=== PATIENT | male | born 1935 | race Caucasian/White ===

== ENCOUNTER 2017-09-11 18:15 | Emergency (ER) | payer MEDICARE, BC ==
[2017-09-11 18:38] VITALS: BP 138/65
--- NOTE | 2017-09-11 18:44 | UC ---
Throat Pain/Nasal [place] HPI - HPI Summary HPI Summary: 82 year old male presents with complains of right lower back pain and cough. - History of Current Complaint Chief Complaint: UCRespiratory Stated Complaint: COUGH,SINUS COMPLAINT Time Seen by Provider: 09/11/17 18:40 Hx Obtained From: Patient Onset/Duration: Sudden Onset Severity: Moderate Cough: Nonproductive Associated Signs & Symptoms: Positive: Wheezing, Sinus Discomfort, Nasal Discharge - Allergies/Home Medications Allergies/Adverse Reactions: Allergies Allergy/AdvReac Type Severity Reaction Status Date / Time No Known Allergies Allergy Verified 09/11/17 18:37 PMH/Surg Hx/FS Hx/Imm Hx Previously Healthy: Yes Other History Of: Negative For: Anticoagulant Therapy - Surgical History Surgical History: Yes Surgery Procedure, Year, and Place: Left knee arthroplasty 2010 at [facility]. Bilat Wrists ~2009 with at [facility]. Started Left shoulder arthroscopy for resurfacing today 06/20/[address] Chavez, not done d/t bradycardic event. lower back surgery ~22 yrs ago, [place] in [place] - Family History Known Family History: Positive: None - Social History Alcohol Use: Rare Substance Use Type: None Smoking Status (MU): Never Smoked Tobacco - Immunization History Most Recent Tetanus Shot: " a long time ago" Review of Systems Constitutional: Negative Skin: Rash Eyes: Negative ENT: Sore Throat, Nasal Discharge, Sinus Congestion, Sinus Pain/Tenderness Respiratory: Cough Cardiovascular: Negative Gastrointestinal: Negative Genitourinary: Negative Motor: Negative Neurovascular: Negative Musculoskeletal: Negative Neurological: Negative Psychological: Negative All Other Systems Reviewed And Are Negative: Yes Physical Exam Triage Information Reviewed: Yes Vital Signs: Initial Vital Signs Temp 36.7 C 09/11/17 18:34 Pulse 75 09/11/17 18:34 Resp 18 09/11/17 18:34 BP 138/65 09/11/17 18:34 Pulse Ox 99 09/11/17 18:34 Vital Signs Reviewed: Yes Eye Exam: Normal ENT: Positive: Pharyngeal erythema, Nasal congestion, Nasal drainage, Sinus tenderness Dental Exam: Normal Neck exam: Normal Respiratory: Positive: Wheezing Cardiovascular Exam: Normal Abdominal Exam: Normal Musculoskeletal Exam: Normal Neurological Exam: Normal Psychological Exam: Normal Skin Exam: Normal Throat Pain/Nasal Course/Dx - Differential Dx/Diagnosis Provider Diagnoses: cough. eczema. allergic rhinits Discharge - Discharge Plan Condition: Stable Disposition: HOME Prescriptions: Amoxicillin PO (*) [Amoxicillin 875 MG (*)] 875 mg PO BID #20 tab Guaifenesin-Codeine [Cheratussin AC] 1 teasp PO Q8H PRN #120 ml MDD 15 ml PRN Reason: Cough LoraTADine TAB(NF) [Claritin 10 MG TAB(NF)] 10 mg PO DAILY #30 tab Methocarbamol TAB* [Robaxin 500 MG TAB*] 500 mg PO TID PRN #30 tab PRN Reason: Spasms - Back Patient Education Materials: Sinusitis (ED), Low Back Strain (ED) Referrals: Silva Martinez MD [Primary Care Provider] -
== END 2017-09-11 18:49 | disposition home or self-care (01) ==
LOC: UCCORT 18:15
DX: J30.9 Allergic rhinitis, unspecified (principal); L30.9 Dermatitis, unspecified; M54.5 Low back pain
CPT/HCPCS: 99212; G0463

== ENCOUNTER 2018-12-31 12:42 | Emergency (ER) | payer MEDICARE, BC ==
[2018-12-31 13:23] VITALS: BP 132/55
--- NOTE | 2018-12-31 13:53 | UC ---
Hand/Wrist HPI - HPI Summary HPI Summary: Pt c/o right hadn swelling and pain , s/p falling yesterday after he tripped from standing and hit right hand and left side of head on wooden piece of furniture. Pt denies LOC, [place], nausea or vomiting - History Of Current Complaint Chief Complaint: UCUpperExtremity Stated Complaint: S/P FALL RIGHT HAND INJURY Time Seen by Provider: 12/31/18 13:42 Hx Obtained From: Patient ?: No Onset/Duration: Sudden Onset, Still Present Severity Initially: Moderate Severity Currently: Mild Pain Intensity: 1 Character Of Pain: Stiffness Aggravating Factor(s): Movement, Lifting Alleviating Factor(s): Rest Associated Signs And Symptoms: Positive: Swelling, Bruising Related History: Dominant Hand Right - Risk Factors Compartment Syndrome Risk Factors: Pain - Allergies/Home Medications Allergies/Adverse Reactions: Allergies Allergy/AdvReac Type Severity Reaction Status Date / Time No Known Allergies Allergy Verified 12/31/18 13:17 Home Medications: Home Medications Cholecalciferol TAB* [Vitamin D TAB*] 1,000 unit PO DAILY 12/31/18 [History Confirmed 12/31/18] Pantoprazole TAB * [Protonix TAB*] 40 mg PO DAILY 12/31/18 [History Confirmed ] PMH/Surg Hx/FS Hx/Imm Hx Previously Healthy: Yes Endocrine History: Dyslipidemia GI/ History: Gastroesophageal Reflux Other History Of: Negative For: Anticoagulant Therapy - Surgical History Surgical History: Yes Surgery Procedure, Year, and Place: Left knee arthroplasty 2010 at [facility]. Bilat Wrists ~2009 with at [facility] [place]. Started Left shoulder arthroscopy for resurfacing today 06/20/[address] Chavez, not done d/t bradycardic event. lower back surgery ~22 yrs ago, [place] in [place] - Family History Known Family History: Positive: Cardiac Disease - Social History Occupation: Retired Lives: With Family Alcohol Use: Rare Substance Use Type: None Smoking Status (MU): Never Smoked Tobacco Have You Smoked in the Last Year: No - Immunization History Most Recent Tetanus Shot: " a long time ago" Vaccination Up to Date: No Review of Systems All Other Systems Reviewed And Are Negative: Yes Constitutional: Positive: Negative Skin: Positive: Bruising - right hand, at second distal metacarpal phalangeal joing Eyes: Positive: Negative ENT: Positive: Negative Respiratory: Positive: Negative Cardiovascular: Positive: Negative Gastrointestinal: Positive: Negative Genitourinary: Positive: Negative Motor: Positive: Decreased ROM Neurovascular: Positive: Negative Musculoskeletal: Positive: Arthralgia, Decreased ROM, Edema, Myalgia Neurological: Positive: Negative Psychological: Positive: Negative Is Patient Immunocompromised?: No Physical Exam Triage Information Reviewed: Yes Appearance: Well-Appearing Vital Signs: Initial Vital Signs Temp 97.7 F 12/31/18 13:19 Pulse 58 12/31/18 13:19 Resp 17 12/31/18 13:19 BP 132/55 12/31/18 13:19 Pulse Ox 99 12/31/18 13:19 Vital Signs Reviewed: Yes Eye Exam: Normal ENT Exam: Normal Dental Exam: Normal Neck exam: Normal Respiratory Exam: Normal Cardiovascular Exam: Normal Musculoskeletal: Positive: Strength Limited @, ROM Limited @, Edema @ Neurological Exam: Normal Psychological Exam: Normal Skin Exam: Other - bruising Diagnostics - Radiology No standard instances Radiology Interpretation Completed By: Radiologist - IMPRESSION: 1. OSTEOPENIA. 2. OSTEOARTHRITIS. 3. NO ACUTE OSSEOUS INJURY. THE DEGREE OF OSTEOPENIA MAY MAKE A NONDISPLACED FRACTURE RADIOGRAPHICALLY OCCULT. IF SYMPTOMS PERSIST, RECOMMEND REPEAT IMAGING. Hand/Wrist Course/Dx - Differential Dx/Diagnosis Differential Diagnosis/HQI/PQRI: Contusion, Fracture Provider Diagnosis: Contusion of right hand Discharge - Sign-Out/Discharge Documenting (check all that apply): Patient Departure All imaging exams completed and their final reports reviewed: Yes - Discharge Plan Condition: Stable Disposition: HOME Patient Education Materials: Contusion in Adults (ED), R.I.C.E. Treatment (ED) Referrals: Erwin Eaton MD [Medical Doctor] - If Needed Silva Martinez MD [Primary Care Provider] - If Needed - Billing Disposition and Condition Condition: STABLE Disposition: Home
== END 2018-12-31 14:12 | disposition home or self-care (01) ==
LOC: UCCORT 12:42
DX: S60.221A Contusion of right hand, initial encounter (principal); W01.190A Fall on same level from slipping, tripping and stumbling with subsequent striking against furniture, initial encounter; Y92.9 Unspecified place or not applicable
CPT/HCPCS: 99212; G0463

== ENCOUNTER 2019-12-19 16:31 | Emergency (ER) | payer MEDICARE, BC ==
[2019-12-19 16:40] VITALS: BP 157/73
[2019-12-19] MEDS ORDERED: Aspirin 81 mg CHEW TAB* 81 MG TAB.CHEW PO ONE (16:41)
--- OUTSIDE RECORDS SUMMARY | 2019-12-19 16:54 | XMS REPORT | Continuity of Care Document ---
:1935 External Reference #:[id number] Author Name Shad Jeffery M.D. Address [address], [place] [address] Care Team Providers Name Role Phone Silva Martinez MD - Family Care Team Information Skein Drier [phone] Medicine Problems Active Problems Provider Date Hemifacial spasm Shad Jeffery M.D. Onset: 09/23/2014 Social History Type Date Description Comments Sex Unknown Tobacco Use Start: Unknown Never Smoked Cigarettes Smoking Status Reviewed: 12/17/19 Never Smoked Cigarettes ETOH Use Occasionally consumes alcohol Tobacco Use Start: Unknown Patient has never smoked Recreational Drug Use Denies Drug Use Exercise Type/Frequency Exercises sporadically Allergies, Adverse Reactions, Alerts Description No Known Drug Allergies Medications Active Medications SIG Qnty Indications Ordering Provider Date Pantoprazole Sodium 1 po qd 30tabs Unknown 40mg Tablets Simvastatin 1 po qd 90tabs Unknown 40mg Tablets Aspir-81 1 po qd Unknown 81mg Tablets Multivitamin Adult 1 by mouth Unknown every day Tablets Celecoxib TK 1 C PO bid Unknown 100mg Capsules WF prn Vitamin B12 once daily Unknown 3000mcg Tablets Sub Medications Administered in Office Medication SIG Qnty Indications Ordering Provider Date Injection Onabotulinumtoxin Shad Kamara M.D. 09/10/2019 1 Unit Injection Injection Onabotulinumtoxin Shad Kamara M.D. 05/07/2019 1 Unit Injection Injection Onabotulinumtoxin Shad Kamara M.D. 01/20/2019 1 Unit Injection Injection Onabotulinumtoxin AShad M.D. 10/09/2018 1 Unit Injection Injection Onabotulinumtoxin A, Shad Jeffery M.D. 05/22/2018 1 Unit Injection Injection Onabotulinumtoxin A, Shad Jeffery M.D. 01/13/2018 1 Unit Injection Injection Onabotulinumtoxin A, Shad Jeffery M.D. 09/12/2017 1 Unit Injection Injection Onabotulinumtoxin A, Shad Jeffery M.D. 05/09/2017 1 Unit Injection Injection Onabotulinumtoxin A, Shad Jeffery M.D. 01/03/2017 1 Unit Injection Injection Onabotulinumtoxin A, Shad Jeffery M.D. 08/30/2016 1 Unit Injection Injection Onabotulinumtoxin AShad M.D. 08/30/2016 1 Unit Injection Injection Onabotulinumtoxin A, Shad Jeffery M.D. 05/24/2016 1 Unit Injection Injection Onabotulinumtoxin AShad M.D. 05/24/2016 1 Unit Injection Injection Onabotulinumtoxin A, Shad Jeffery M.D. 02/16/2016 1 Unit Injection Injection Onabotulinumtoxin Asad, Shad Jeffery M.D. 02/16/2016 1 Unit Injection Injection Onabotulinumtoxin A, Shad Jeffery M.D. 11/10/2015 1 Unit Injection Injection Onabotulinumtoxin A, Shad Jeffery M.D. 08/04/2015 1 Unit Injection Injection Onabotulinumtoxin Asad, Shad Jeffery M.D. 03/31/2015 1 Unit Injection Injection Onabotulinumtoxin Asad, Shad Jeffery M.D. 12/23/2014 1 Unit Injection Injection Onabotulinumtoxin A, Shad Jeffery M.D. 09/23/2014 1 Unit Injection Injection Onabotulinumtoxin A, Shad Jeffery M.D. 06/03/2014 1 Unit Injection Injection Onabotulinumtoxin Shad Kamara M.D. 06/03/2014 1 Unit Injection Injection Onabotulinumtoxin Asad, Shad Jeffery M.D. 06/03/2014 1 Unit Injection Injection Onabotulinumciprianoxin Asad, Shad Jeffery M.D. 03/04/2014 1 Unit Injection Injection Onabotulinumtoxin Shad Kamara M.D. 11/26/2013 1 Unit Injection Injection Onabotulinumtoxin Asad, Shad Jeffery M.D. 08/27/2013 1 Unit Injection Injection Onabotulinumtoxin Shad Kamara M.D. 08/27/2013 1 Unit Injection Injection Onabotulinumtoxin Shad Kamara M.D. 04/23/2013 1 Unit Injection Injection Samiabotulinumciprianoxin Shad Kamara M.D. 04/23/2013 1 Unit Injection Injection Onabotulinumtoxin Shad Kamara M.D. 12/18/2012 1 Unit Injection Injection Onabotulinumtoxin Shad Kamara M.D. 12/18/2012 1 Unit Injection Injection Onabotulinumciprianoxin Shad Kamara M.D. 08/14/2012 1 Unit Injection Injection Onabotulinumciprianoxin Shad Kamara M.D. 08/14/2012 1 Unit Injection Depomedrol 80MG Candace Ambriz M.D. 05/29/2012 Injection Injection Onabotulinumtoxin Asad, Shad Jeffery M.D. 05/07/2012 1 Unit Injection Depomedrol 80MG Candace Ambriz M.D. 01/17/2012 Injection Immunizations Description No Information Available Vital Signs Date Vital Result Comment 12/17/2019 1:08pm Height 67 inches 5'7" Weight 204.00 lb Heart Rate 72 /min BP Systolic 118 mmHg BP Diastolic 60 mmHg Respiratory Rate 16 /min Pain Level 0 O2 % BldC Oximetry 98 % BMI (Body Mass Index) 31.9 kg/m2 09/10/2019 11:35am Height 67 inches 5'7" Weight 207.00 lb Heart Rate 70 /min BP Systolic Sitting 126 mmHg BP Diastolic Sitting 78 mmHg Respiratory Rate 12 /min Pain Level 0 O2 % BldC Oximetry 96 % BMI (Body Mass Index) 32.4 kg/m2 Results Description No Information Available Procedures Date Code Description Status 12/17/2019 71971 Destruction W/Neurolytic Agent, Facial Nerve Muscle, Completed Unilateral 09/10/2019 93894 Destruction W/Neurolytic Agent, Facial Nerve Muscle, Completed Unilateral Medical Devices Description No Information Available Encounters Description No Information Available Assessments Date Code Description Provider 12/17/2019 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 Plan of Treatment Future Appointment(s):03/31/2020 1:00 pm - Shad Jeffery M.D. at [place]02/11/2020 8:15 am - Madhuri Blanco MD at [facility] Dermatology AT [facility]/02/2020 - Shad Jeffery M.D.G51.32 Clonic hemifacial spasm, left Functional Status Description No Information Available Mental Status Description No Information Available Referrals Description No Information Available
--- NOTE | 2019-12-19 16:56 | UC ---
Cardiac HPI - HPI Summary HPI Summary: patient to urgent care with son driving. Patient had substernal chest pain while playing pool about 3 pm---the discomfort went away with rest he was noted to be SOB at the time but no nausea or sweating---patient has had two episodes similar in the past that he did not seek care for-patient shows a new LBBB from EKG at [facility] in 2012 - History of Current Complaint Chief Complaint: UCChestPain Stated Complaint: CHEST PAIN Time Seen by Provider: 12/19/19 16:32 Hx Obtained From: Patient Onset/Duration: Sudden Onset, Resolved Initial Severity: Moderate Pain Intensity: 0 Chest Pain Location: Mid Sternal Character: Tightness, Pressure/Squeezing Aggravating Factor(s): Exertion Alleviating Factor(s): Rest Associated Signs & Symptoms: Positive: SOB - Allergy/Home Medications Allergies/Adverse Reactions: Allergies Allergy/AdvReac Type Severity Reaction Status Date / Time No Known Allergies Allergy Verified 12/19/19 16:34 Home Medications: Home Medications Aspirin 81 mg PO QPM 06/19/12 [History Confirmed 12/19/19] Multivitamins 1 tab PO QPM 06/19/12 [History Confirmed 12/19/19] Zocor 20 mg PO QPM 06/19/12 [History Confirmed 12/19/19] Cholecalciferol TAB* [Vitamin D TAB*] 1,000 unit PO DAILY 12/31/18 [History Confirmed 12/19/19] Pantoprazole TAB * [Protonix TAB*] 40 mg PO DAILY 12/31/18 [History Confirmed ] PMH/Surg Hx/FS Hx/Imm Hx Previously Healthy: No Endocrine History: Dyslipidemia GI/ History: Gastroesophageal Reflux Other History Of: Negative For: Anticoagulant Therapy - Surgical History Surgical History: Yes Surgery Procedure, Year, and Place: Left knee arthroplasty 2010 at [facility]. Bilat Wrists [facility]. Started Left shoulder arthroscopy for resurfacing today 06/20/[address] Chavez, not done d/t bradycardic event. lower back surgery ~22 yrs ago, [place] in [place] - Family History Known Family History: Positive: None, Cardiac Disease - Social History Occupation: Retired Lives: With Family Alcohol Use: Weekly Substance Use Type: None Smoking Status (MU): Never Smoked Tobacco Have You Smoked in the Last Year: No - Immunization History Most Recent Tetanus Shot: " a long time ago" Vaccination Up to Date: No Review of Systems All Other Systems Reviewed And Are Negative: Yes Constitutional: Positive: Negative Skin: Positive: Negative Eyes: Positive: Negative ENT: Positive: Negative Respiratory: Positive: Shortness Of Breath Cardiovascular: Positive: Chest Pain Gastrointestinal: Positive: Negative Genitourinary: Positive: Negative Motor: Positive: Negative Neurovascular: Positive: Negative Musculoskeletal: Positive: Negative Neurological/Mental Status: Positive: Negative Psychological: Positive: Negative Is Patient Immunocompromised?: No Physical Exam Triage Information Reviewed: Yes Appearance: No Pain Distress, Well-Nourished, Ill-Appearing - mild Vital Signs: Initial Vital Signs Temp 97.2 F 12/19/19 16:35 Pulse 82 12/19/19 16:35 Resp 17 12/19/19 16:35 BP 157/73 12/19/19 16:35 Pulse Ox 95 12/19/19 16:35 Vital Signs Reviewed: Yes Eye Exam: Normal Eyes: Positive: Conjunctiva Clear ENT Exam: Normal ENT: Positive: Normal ENT inspection, Hearing grossly normal. Negative: Trismus , Muffled voice, Hoarse voice Neck exam: Normal Neck: Positive: Supple, Nontender, No Lymphadenopathy Respiratory Exam: Normal Respiratory: Positive: Chest non-tender, No respiratory distress, No accessory muscle use Cardiovascular Exam: Normal Cardiovascular: Positive: RRR, Pulses Normal, Brisk Capillary Refill Musculoskeletal Exam: Normal Musculoskeletal: Positive: Strength Intact, ROM Intact, No Edema Neurological Exam: Normal Neurological: Positive: Alert, Muscle Tone Normal Psychological Exam: Normal Skin Exam: Normal Diagnostics - EKG Cardiac Rate: NL Cardiac Rhythm: Sinus: Normal, LBBB: New Ectopy: None ST Segment: Normal EKG Comparison: Other - new LBBB from 2012 Summary of EKG Findings: sinus rhythm with LBBB - Assessment/Plan Course Of Treatment: 324 mg of aspirin to chew, saline lock to [facility] by EMS, - Clinical Impression Provider Diagnosis: Chest pain - Physician Notifications Discussed Patient Care With: Clark Anguiano Time Discussed With Above Provider: 16:55 Discharge ED - Sign-Out/Discharge Documenting (check all that apply): Patient Departure All imaging exams completed and their final reports reviewed: No Studies - Discharge Plan Condition: Fair Disposition: [facility] FAC Referrals: Silva Martinez MD [Primary Care Provider] - - Billing Disposition and Condition Condition: FAIR Disposition: Trans Higher Lvl of Care Fac
== END 2019-12-19 16:58 | disposition short-term general hospital (02) ==
LOC: UCCORT 16:31
DX: R07.89 Other chest pain (principal); R06.02 Shortness of breath; I44.7 Left bundle-branch block, unspecified; E78.5 Hyperlipidemia, unspecified; K21.9 Gastro-esophageal reflux disease without esophagitis; Z79.82 Long term (current) use of aspirin; Z79.899 Other long term (current) drug therapy
CPT/HCPCS: 99213; A9270-GY; G0463

== ENCOUNTER 2019-12-19 17:46 | Observation (INO) | payer MEDICARE, BC ==
--- NOTE | 2019-12-19 17:58 | ED ---
HPI Chest Pain - HPI Summary HPI Summary: 84 y/o male presented to [facility] complaining of CP characterized as tightness that resolved after 15-20 minutes. Pt endorses nausea and dyspnea, but denies diaphoresis, SOB, fever, cough, and abd pain. Pt states the pain does not radiate and that he has experienced TRENT recently. He notes 2 prior episodes with similar sx. Pt denies hx of cardiac problems, asthma, COPD, stent, or blood clots. He denies fhx of HTN and DM. - History of Current Complaint Hx Obtained From: Patient Onset/Duration: Resolved Timing: Lasting Minutes Current Severity: None Pain Intensity: 0 Pain Scale Used: 0-10 Numeric Chest Pain Radiates: No Character: Tightness Aggravating Factor(s): Nothing Alleviating Factor(s): Nothing Associated Signs and Symptoms: Positive: Chest Pain, Other: - positive - dyspnea. Negative: Shortness of Breath, Fever, Diaphoresis, Cough, Abdominal Pain - Allergy/Home Medications Allergies/Adverse Reactions: Allergies Allergy/AdvReac Type Severity Reaction Status Date / Time No Known Allergies Allergy Verified 12/19/19 20:43 Home Medications: Home Medications Cholecalciferol TAB* [Vitamin D TAB*] 1,000 unit PO DAILY 12/31/18 [History Confirmed 12/19/19] Aspirin 81 mg CHEW TAB* 81 mg PO DAILY 12/19/19 [History Confirmed 12/19/19] Atorvastatin* [Lipitor*] 40 mg PO DAILY 12/19/19 [History Confirmed 12/19/19] Glucos Sul 2Kcl/MSM/Chond/C/Mn [Glucosamine Chondroitin Cap] 1 cap PO DAILY 01/03 [History Confirmed 12/19/19] Pantoprazole TAB * [Protonix TAB*] 20 mg PO EVERY OTHER DAY 12/19/19 [History Confirmed 12/19/19] Vitamin B12 TAB* 500 mg PO DAILY 12/19/19 [History Confirmed 12/19/19] celeCOXIB CAP* [CeleBREX CAP*] 100 mg PO BID 12/19/19 [History Confirmed ] PMH/Surg Hx/FS Hx/Imm Hx Endocrine/Hematology History: Denies: Hx Anticoagulant Therapy, Hx Blood Disorders, Hx Blood Transfusions, Hx Bone Marrow Disease, Hx Diabetes, Hx Systemic Lupus Erythematosus, Hx Sickle Cell Disease, Hx Thyroid Disease, Hx Anemia, Hx Unexplained Bleeding Cardiovascular History: Reports: Hx Hypercholesterolemia, Other Cardiovascular Problems/Disorders - EPISODE OF BRADYCARDIA, 06/20/[address] GODOY Denies: Hx Angina, Hx Coronary Artery Disease, Hx Hypertension, Hx Myocardial Infarction, Hx Valvular Heart Disease Respiratory History: Denies: Hx Asthma, Hx Chronic Obstructive Pulmonary Disease (COPD) GI History: Reports: Hx Jaundice - see above, Hx Ulcer - stomach ulcers years ago,,takes protonix at home Denies: Hx Cirrhosis, Hx Crohn's Disease, Hx Diverticulosis, Hx Gall Bladder Disease, Hx Gastroesophageal Reflux Disease, Hx Gastrointestinal Bleed, Hx Hiatal Hernia, Hx Irritable Bowel, Hx Obstructive Bowel, Hx Ileostomy, Hx Pyloric Stenosis, Other GI Disorders History: Reports: Other Problems/Disorders - Prostate Ca, had radiation states no difference in voiding Denies: Hx Acute Renal Failure, Hx Benign Prostatic Hyperplasia, Hx Chronic Renal Failure, Hx Dialysis, Hx Kidney Infection, Hx Kidney Stones Musculoskeletal History: Reports: Hx Arthritis - left shoulder and "all over", Hx Back Problems, Hx Tendonitis - Carpal tunnel sydrome, has had surgical intervention on bilat wrists, Other Musculoskeletal History - left knee repair Denies: Hx Bursitis, Hx Congenital Bone Abnormalities, Hx Fibromyalgia, Hx Gout, Hx Orthopedic Injury, Hx Osteoporosis, Hx Scoliosis Sensory History: Reports: Hx Contacts or Glasses Denies: Hx Cataracts, Hx Eye Injury, Hx Eye Prosthesis, Hx Glaucoma, Hx Macular Degeneration, Hx Vision Problem, Hx Deafness, Hx Hearing Aid, Hx Hearing Problem, Other Sensory Impairments Opthamlomology History: Reports: Hx Contacts or Glasses Denies: Hx Cataracts, Hx Eye Injury, Hx Eye Prosthesis, Hx Glaucoma, Hx Macular Degeneration, Hx Vision Problem, Other Sensory Impairments Neurological History: Reports: Other Neuro Impairments/Disorders - Left eye twitches, receives botox injections for that, otherwise no hx Denies: Hx Dementia, Hx Seizures - Cancer History Cancer Type, Location and Year: Prostate Ca- 2011 Hx Chemotherapy: No Hx Radiation Therapy: Yes - Surgical History Surgery Procedure, Year, and Place: Left knee arthroplasty 2010 at [facility]. Bilat Wrists ~2009 with at [facility]. Started Left shoulder arthroscopy for resurfacing today 06/20/[address] Chavez, not done d/t bradycardic event. lower back surgery ~22 yrs ago, [facility] in [place] Hx Anesthesia Reactions: No Infectious Disease History: Reports: Hx Hepatitis - ~1953 had "yellow jaundice" unknown which type Denies: Hx Human Immunodeficiency Virus (HIV), Hx Shingles, Hx Tuberculosis - Family History Known Family History: Positive: Cardiac Disease - Social History Alcohol Use: Weekly Substance Use Type: Reports: None Smoking Status (MU): Never Smoked Tobacco Have You Smoked in the Last Year: No Review of Systems Negative: Fever, Skin Diaphoresis Positive: Chest Pain Positive: Other - dyspnea. Negative: Shortness Of Breath, Cough Negative: Abdominal Pain All Other Systems Reviewed And Are Negative: Yes Physical Exam - Summary Physical Exam Summary: Constitutional: Well-developed, Well-nourished, Alert. (-) Distressed Skin: Warm, Dry HENT: Normocephalic; Atraumatic Eyes: Conjunctiva normal Neck: Musculoskeletal ROM normal neck. (-) JVD, (-) Stridor, (-) Tracheal deviation Cardio: Rhythm regular, rate normal, Heart sounds normal; Intact distal pulses; The pedal pulses are 2+ and symmetric. Radial pulses are 2+ and symmetric. (-) Murmur Pulmonary/Chest wall: Effort normal. (-) Respiratory distress, (-) Wheezes, (-) Rales Abd: Soft, (-) tenderness, (-) Distension, (-) Guarding, (-) Rebound Musculoskeletal: (-) Edema Lymph: (-) Cervical adenopathy Neuro: Alert, Oriented x3 Psych: Mood and affect Normal Triage Information Reviewed: Yes Vital Signs Reviewed: Yes Procedures - Sedation Patient Received Moderate/Deep Sedation with Procedure: No Diagnostics - Laboratory Result Diagrams: 12/20/19 05:28 12/20/19 05:28 Lab Statement: Any lab studies that have been ordered have been reviewed, and results considered in the medical decision making process. - Radiology cxr Radiology Interpretation Completed By: Radiologist Summary of Radiographic Findings: IMPRESSION: No radiographic evidence for acute cardiopulmonary abnormality on this. portable chest x-ray. This report was reviewed by the Dr. Galicia. - EKG 1802 Cardiac Rate: NL EKG Rhythm: Sinus Rhythm Summary of EKG Findings: EKG at 1802 shows NSR at 62bpm. T wave inversions in III and avF. This EKG was reviewed and interpreted by Dr. Galicia. Chest Pain Course/Dx - Course Course Of Treatment: 84 y/o male presented to [facility] complaining of CP characterized as tightness that resolved after 15-20 minutes. Pt endorses nausea and dyspnea, but denies diaphoresis, SOB, fever, cough, and abd pain. Pt states the pain does not radiate and that he has experienced TRENT recently. He notes 2 prior episodes with similar sx. Pt denies hx of cardiac problems, asthma , COPD, stent, or blood clots. He denies fhx of HTN and DM. Exam was normal. Labs showed Hgb 13.8, Hct 39, BUN 33, BUN/creatinine ratio 40.2, Glc 134, and total protein 6.1. EKG at 1802 shows NSR at 62bpm. T wave inversions in III and avF. X-ray chest showed no radiographic evidence for acute cardiopulmonary abnormality on this. At 1913 pt case was discussed with Dr. Feliciano, who will admit the pt. Pt was diagnosed with chest pain; and admitted to [facility] - Diagnoses Provider Diagnoses: Chest pain - Provider Notifications Discussed Care Of Patient With: Ashely Feliciano Time Discussed With Above Provider: 19:13 Instructed by Provider To: Other - Pt case was discussed with Dr. Feliciano, who will admit the pt. Discharge ED - Sign-Out/Discharge Documenting (check all that apply): Patient Departure - admit - Discharge Plan Condition: Stable Disposition: ADMITTED TO [facility] - Billing Disposition and Condition Condition: STABLE Disposition: Admitted to [facility] - Attestation Statements Document Initiated by Emmettibe: Yes Documenting Scribe: Bhupinder Peña Provider For Whom Pietro is Documenting (Include Credential): Lopez Galicia DO Scribe Attestation: Bhupinder Blanchard scribed for Lopez Galicia DO on 12/20/19 at 1225. Scribe Documentation Reviewed: Yes Provider Attestation: The documentation as recorded by the Bhupinder hardwick accurately reflects the service I personally performed and the decisions made by me, Lopez Galicia DO Status of Scribe Document: Viewed
[2019-12-19 18:11] LABS: ABS Eosinophils 0.1 10^3/ul (0-0.6); ABS Lymphocytes 1.5 10^3/ul (1.0-4.8); ABS Monocytes 0.5 10^3/ul (0-0.8); ABS Neutrophils 5.3 10^3/ul (1.5-7.7); Eosinophil % 0.8 %; Hematocrit 39 % (42-52); Hemoglobin 13.8 g/dL (14.0-18.0); Lymphocyte % 19.9 %; Mean Corpuscular HGB Conc 35 g/dL (31-36); Mean Corpuscular Hemoglobin 31 pg (27-31); Mean Corpuscular Volume 89 fL (80-94); Mean Platelet Volume 7.8 fL (7.4-10.4); Platelet Count 176 10^3/uL (150-450); Red Blood Count 4.42 10^6 /uL (4.18-5.48); Red Cell Distribution Width 14 % (10-15); White Blood Count 7.3 10^3/uL (3.5-10.8)
[2019-12-19 18:19] LABS: Activated Partial Thrombo Time 31.2 seconds (26.0-38.0); INR 1.09 (0.82-1.09)
[2019-12-19 18:27] LABS: Albumin 3.9 g/dL (3.2-5.2); Albumin/Globulin Ratio 1.8 (1-3); BUN/Creatinine Ratio 40.2 (8-20); Calcium 9.4 mg/dL (8.6-10.3); EGFR African American 108.8 (>60); EGFR Non-African American 89.9 (>60); Globulin 2.2 g/dL (2-4); Potassium 3.7 mmol/L (3.5-5.0); Total Bilirubin 0.4 mg/dL (0.2-1.0); Total Protein 6.1 g/dL (6.4-8.9)
[2019-12-19 18:28] LABS: Troponin I 0.01 ng/mL (<0.03)
--- NOTE | 2019-12-19 22:39 | HP ---
AMENDED REPORT NOW INCLUDES DESIGNATED COSIGNER HISTORY AND PHYSICAL: DATE OF ADMISSION: 12/19/19 PROVIDER: Lora Velasquez NP ATTENDING PHYSICIAN: Dr. Ashely Feliciano * (report dictated by Lora Velasquez NP). PRIMARY CARE PROVIDER: Dr. Silva Martinez. CHIEF COMPLAINT: Chest pain and shortness of breath. HISTORY OF PRESENT ILLNESS: Mr. Titus is an 84-year-old male with a past medical history of obesity, GERD, low back pain, peptic ulcer disease, osteoarthritis, hyperlipidemia, 2012 intraoperative asystole who presented to the emergency department today sent from urgent care with complaint of chest pain and shortness of breath. The patient reports he had an episode of chest pain around 2 p.m. today in which he described he had been active most of the day, had just come back from riding his motorcycle, and developed acute onset of midsternal chest pain, reporting it felt like somebody was sitting on his chest, this was accompanied with shortness of breath. He denies radiation. He reports this lasted for approximately 15 minutes, then resolved. He reports he still did not quite feel well a couple of hours after this happened, so he came to the emergency room for further evaluation. In the previous 6 months, he reports he has intermittently woken up in the night with similar chest discomfort reporting it is accompanied with diffuse sweating and states this has happened approximately 10 times. He reports that it resolves within 10 minutes and he is able to fall back asleep. He denies any history of cardiac disease in the past. His father did have heart disease with hx of [place]. He reports he has had "several" cardiac stress tests in the past, which have been negative, but states that these were greater than 5 years ago. He denies any recent cough, upper respiratory illness, fever, or chills. He reports otherwise he feels in his normal state of health. He does report he has a history of reflux which is controlled by Zantac. He does report that last week he ate a slice of pizza and experienced reflux afterwards, and then today, he reports he ate oatmeal and a doughnut, but does not correlate the symptoms he experienced today with the symptoms of what he normally feels as reflux. The patient has not had any further chest pain or shortness of breath since arrival to the emergency department. PAST MEDICAL HISTORY: Obesity, hyperlipidemia, osteoarthritis, infectious hepatitis in high school, peptic ulcer disease, BPH, GERD, chronic low back pain , hx of asytsole in the setting of hypotention inoperative in 2012 had a cardiology work up at that time with nuclear med stress test showing small area of attenuation or possible small area of ischemia PAST SURGICAL HISTORY: Shoulder surgery, knee arthroscopy, tonsillectomy, back surgery, carpal tunnel release. HOME MEDICATIONS: 1. Vitamin D 1000 units p.o. daily. 2. Aspirin 81 mg p.o. daily. 3. Zocor 20 mg p.o. daily. 4. Multivitamin p.o. daily. ALLERGIES: No known drug allergies. FAMILY HISTORY: His mother lived to the age of 102. His father had history of cardiac disease and congestive heart failure. He reports his brother had throat cancer. SOCIAL HISTORY: The patient denies a history of smoking. He reports he drinks alcohol couple times a week, not excessively. He currently lives at home with his who is his healthcare proxy. He has 2 grown children who live in [place] that he is close to. He lists his as his healthcare proxy. He is a full code. REVIEW OF SYSTEMS: A 14-point review of systems was performed. All the pertinent positives and negatives are mentioned in the history of present illness, otherwise are negative. PHYSICAL EXAMINATION GENERAL: A well-developed 84-year-old male, sitting up in emergency department stretcher, alert and oriented x3, in no acute distress, fairly good historian, appropriate. VITAL SIGNS: Temperature 97.3, heart rate 64, respirations 13, O2 sat 97% on room air, blood pressure 145/75. HEENT: Head is normocephalic and atraumatic. Pupils equal and reactive to light. Oropharynx is clear. Moist mucous membranes. NECK: Supple. No JVD. LUNGS: Clear to auscultation bilaterally. Good aeration throughout. CARDIAC: S1 and S2. Regular rate and rhythm. No murmur noted. ABDOMEN: Obese, round abdomen. Soft, nontender, nondistended. No masses noted. EXTREMITIES: Moves all extremities. Strength is 5/5 throughout. No lower extremity edema noted. NEURO: Alert and oriented x3. Cranial nerves II through XII are intact. Strength is equal throughout. SKIN: Warm, dry, pink. DIAGNOSTIC STUDIES/LAB DATA: Labs: WBC 7.3, RBC 4.42, HGB 13.8, HCT 39, MCV 89, MCH 31, MCHC 35, RDW 14, platelet count 176. INR 1.09, aPTT 31.2. Sodium 139, potassium 3.7, chloride 104, carbon dioxide 28, anion gap 7, BUN 33, creatinine 0.82, glucose 134, calcium 9.4. Total bilirubin 0.40, AST 18, ALT 18 , alkaline phosphatase 98. Troponin 0.01. Total protein 6.1, albumin 3.9. EKG: Normal sinus rhythm with a rate of 62, noted T-wave inversions in lead III and aVF. Chest x-ray: No radiographic evidence of acute cardiopulmonary abnormality. IMPRESSION AND PLAN: Mr. Titus is an 84-year-old male with a past medical history of obesity, hyperlipidemia, gastroesophageal reflux disease, peptic ulcer disease, osteoarthritis, low back pain, who presents today with complaint of chest pain. 1. Chest pain. The patient's HEART score is 5 placing him at moderate risk. He will be admitted on observation to telemetry with q.4 hours vital signs. Initial troponin is 0.01, trend it q.3 hours. Repeat EKG. Plan for transthoracic echocardiogram tomorrow. Cardiac nuclear stress test on Saturday. Continue aspirin 81 mg. Continue statin. Check fasting lipid profile in the morning. if the patient develops further chest pain or abnormal stress test he should have a truck bench mechanic consult 2. Gastroesophageal reflux disease. Continue PPI. 3. Hyperlipidemia. Continue statin. Fasting lipid profile in the morning. 4. DVT prophylaxis. Heparin subcu q.8. 5. Diet: Heart healthy, no caffeine. 6. Activity: Up with assistance 7. Code status: Full code. The patient's healthcare proxy is his , Mikala Titus, number [phone]. 8. Hospital status. Observation. TIME SPENT: Approximately 60 minutes was spent on this admission. This patient was discussed with attending physician, Dr. Feliciano, who agrees the plan of care. LORA VELASQUEZ, LICENSED MARINE ENGINEER [id number]/[facility] #: [id number] SMALLPOX HOSPITALEmilee
[2019-12-19] MEDS: Heparin VIAL(*) 5000 UNITS/ML VIAL (FIVE THOUSAND) SUBCUT SCH (22:58)
[2019-12-19] MEDS: Atorvastatin* 40 MG TAB PO SCH (23:22)
[2019-12-20] MEDS: Heparin VIAL(*) 5000 UNITS/ML VIAL (FIVE THOUSAND) SUBCUT SCH ×3 (05:16→20:34)
[2019-12-20 06:03] LABS: ABS Eosinophils 0.1 10^3/ul (0-0.6); ABS Lymphocytes 1.5 10^3/ul (1.0-4.8); ABS Monocytes 0.5 10^3/ul (0-0.8); ABS Neutrophils 3.7 10^3/ul (1.5-7.7); Eosinophil % 1.5 %; Hematocrit 38 % (42-52); Hemoglobin 13.1 g/dL (14.0-18.0); Lymphocyte % 25.8 %; Mean Corpuscular HGB Conc 34 g/dL (31-36); Mean Corpuscular Hemoglobin 31 pg (27-31); Mean Corpuscular Volume 89 fL (80-94); Nucleated Red Blood Cells % 0.1; Platelet Count 181 10^3/uL (150-450); Red Blood Count 4.28 10^6 /uL (4.18-5.48); Red Cell Distribution Width 14 % (10-15); White Blood Count 5.8 10^3/uL (3.5-10.8)
[2019-12-20 06:17] LABS: BUN/Creatinine Ratio 31.5 (8-20); Calcium 8.8 mg/dL (8.6-10.3); EGFR African American 95.3 (>60); EGFR Non-African American 78.8 (>60); HDL Cholesterol 37.1 mg/dL; Potassium 3.5 mmol/L (3.5-5.0)
[2019-12-20] MEDS: Aspirin 81 mg CHEW TAB* 81 MG TAB.CHEW PO SCH (07:59)
[2019-12-20] MEDS: Cholecalciferol TAB* 1000 UNITS PO SCH (07:59)
--- NOTE | 2019-12-20 09:22 | PN ---
Subjective Date of Service: 12/20/19 Interval History: Patient reports no further CP since prior to admission. He slept well. No complaints at this time. Objective Active Medications: Aspirin (Aspirin 81 Mg Chew Tab*) 81 mg PO DAILY [facility] Last Admin: 12/20/19 07:59 Dose: 81 mg Atorvastatin Calcium (Lipitor*) 40 mg PO BEDTIME [facility] Last Admin: 12/19/19 23:22 Dose: 40 mg Cholecalciferol (Vitamin D Tab*) 1,000 units PO DAILY [facility] Last Admin: 12/20/19 07:59 Dose: 1,000 units Heparin Sodium (Porcine) (Heparin Vial(*)) 5,000 units SUBCUT Q8HR [facility] Last Admin: 12/20/19 05:16 Dose: 5,000 units Vital Signs - 8 hr 12/20/19 08:00 Temperature 98.0 F Pulse Rate 64 Respiratory 20 Rate Blood Pressure 150/63 (mmHg) O2 Sat by Pulse 97 Oximetry Oxygen Devices in Use Now: None Appearance: A+Ox3 in NAD Eyes: PERRLA Ears/Nose/Mouth/Throat: Mucous Membranes Moist Neck: NL Appearance and Movements; NL JVP Respiratory: Symmetrical Chest Expansion and Respiratory Effort, Clear to Auscultation Cardiovascular: NL Sounds; No Murmurs; No JVD, RRR, No Edema Abdominal: NL Sounds; No Tenderness; No Distention, - - obese Extremities: No Edema, No Clubbing, Cyanosis Skin: - - warm, dry, pink Neurological: Alert and Oriented x 3 Lines/Tubes/Other Access: Clean, Dry and Intact Peripheral IV Nutrition: Taking PO's Result Diagrams: 12/20/19 05:28 12/20/19 05:28 Assess/Plan/Problems-Billing Assessment: Mr. Titus is an 84-year-old male with a past medical history of obesity, GERD, low back pain, peptic ulcer disease, osteoarthritis, hyperlipidemia, 2012 intraoperative asystole who presented to the emergency department today with complaint of chest pain and shortness of breath. - Patient Problems (1) Chest pain Current Visit: Yes Comment: - Troponins flat - EKG on admission inverted Twaves in lead III and avf of unknown age determinate - no changes in EKG since admission - plan for TTE today - Cardiac Stress Test tomorrow; NPO after midnight - Continue statin, ASA (2) GERD (gastroesophageal reflux disease) Comment: - continue PPI (3) Hyperlipidemia Current Visit: Yes Comment: - lipid profile - well controlled - triglycerides a little high - patient was instructed this is most likely secondary to diet and reducing sugar/processed carbohydrates replacing with healthy whole foods could help lower this. - Continue statin (4) Obesity (BMI 30.0-34.9) Current Visit: Yes Comment: - add on HgA1C (5) DVT prophylaxis Current Visit: Yes Comment: Heparin SQ Q8 hour (6) Full code status Current Visit: Yes Status and Disposition: OBV -Waiting for stress test Saturday
[2019-12-20] MEDS ORDERED: Perflutren Lipid Microsphere* 3 ML VIAL ONE (10:44)
--- NOTE | 2019-12-20 11:32 | ECHO ---
*[facility]* [place] [address] Fax #: [phone] Transthoracic Echocardiogram Patient: Thony Titus : 1935 Study Date: 12/20/2019 Age: 84 Gender: M HR: 70 bpm Height: 66 in /167.6 cm BSA: 2.02 m^2 Weight: 204.6 lb /93 kg BMI: 33.1 kg/m^2 *Supervisor [place] [employer]: Noreen Silva [facility] *Referring Physician: * Alisha Horne *Reading Physician: Real Dunham MD Indications: Chest Pain, unspecified. History: Risk factors: Obese. Dyslipidemia. Conclusions Summary: - Left ventricle: There is focal basal hypertrophy. Systolic function is normal. The estimated ejection fraction is 60-65%. Doppler parameters are consistent with abnormal left ventricular relaxation (grade 1 diastolic dysfunction). - Aortic valve: The findings are consistent with mild stenosis. The valve area by the velocity-time integral method is 1.44 cm^2. The aortic stenosis seems mild by suboptimal 2d and peak gradient. The seems mild to moderate by continuity which may overestimate the degree of stenosis. The valve area by the peak velocity method is 1.40 cm^2. Study data: Transthoracic echocardiogram. Procedure: Transthoracic echocardiography was performed. Image quality was adequate. Intravenous Definity , 2 mlswas administered. Image enhancement administered by AIMEE Ca 4S. Complete 2D, spectral Doppler, and color flow Doppler. Location: Bedside. Patient status: Inpatient. Patient room number: 444. No prior study is available for comparison. Rhythm: Normal sinus rhythm. Findings Left ventricle: The cavity size is normal. There is focal basal hypertrophy. Systolic function is normal. The estimated ejection fraction is 60-65%. Wall motion is normal; there are no regional wall motion abnormalities. Doppler parameters are consistent with abnormal left ventricular relaxation (grade 1 diastolic dysfunction). Right ventricle: The cavity size is normal. Systolic function is normal. Ventricular septum: The outflow septum has a sigmoid appearance. Left atrium: The atrium is normal in size. Right atrium: The atrium is normal in size. Mitral valve: The leaflets are normal thickness. There is no evidence of stenosis. There is no significant regurgitation. Aortic valve: The valve is probably trileaflet. The leaflets are mildly thickened. The findings are consistent with mild stenosis. There is no significant regurgitation. Tricuspid valve: The leaflets are normal thickness. There is no evidence of stenosis. There is no significant regurgitation. Pulmonic valve: Not well visualized. There is no significant regurgitation. Aorta: The aortic root appears normal. The aortic arch appears normal. Pericardium: There is no significant pericardial effusion. Pulmonary arteries: Systolic pressure can not be accurately estimated. Systemic veins: Inferior vena cava: The vessel is normal in size. There is (>= 50%) respiratory change in the IVC dimension. Measurements Left ventricle Value Ref Aortic valve Value Ref MARIA ELENA, LAX 4.5 cm 4.2 - 5.8 Carol diam, ED 2.0 cm -------- ESD, LAX 3.0 cm 2.5 - 4.0 Carol diam/bsa, ED 1.0 cm/m^2 -------- FS, LAX 34 % 25 - 43 Peak v, S 2.2 m/sec -------- PW, ED, LAX 0.9 cm 0.6 - 1.0 VTI, S 48.0 cm -------- E', lat carol, TDI (L) 6.0 cm/sec >=10.0 Mean grad, S 9.0 mm Hg -------- E/e', lat carol, 12 Peak grad, S 19.0 mm Hg --- ----- TDI LVOT/AV, VTI ratio 0.46 -------- E', med carol, TDI 8.0 cm/sec >=7.0 ABDIRAHMAN, VTI 1.44 cm^2 -------- E/e', med carol, 9 ABDIRAHMAN, Vmax 1.40 cm^2 --- ----- TDI E', avg, TDI 7.0 cm/sec Mitral valve Value Ref E/e', avg, TDI 10 <=14 Peak E 0.72 m/sec -------- Peak A 0.82 m/sec -------- LVOT Value Ref Decel time 166 ms -------- Diam, S 2.00 cm Peak grad, D 2.0 mm Hg -------- Area 3.1 cm^2 Peak E/A ratio 0.9 -------- Peak wayne, S 0.99 m/sec VTI, S 22.0 cm Pulmonic valve Value Ref Mean grad, S 2 mm Hg Peak v, S 0.97 m/sec -------- SV 69 ml Peak grad, S 4.0 mm Hg -------- Ventricular septum Value Ref Aortic root Value Ref IVS, ED (H) 1.2 cm 0.6 - 1.0 Root diam 2.8 cm <4.2 Root max diam/bsa, 1.4 cm/m^2 1.3 - Right ventricle Value Ref ED 2.1 MARIA ELENA, LAX 2.7 cm MARIA ELENA minor ax, A4C 3.0 cm 1.9 - 3.5 Ascending aorta Value Ref mid AAo AP diam, S 2.9 cm -------- AAo AP diam/bsa, S 1.4 cm/m^2 -------- Left atrium Value Ref AP dim, ES 3.70 cm 3.00 - Aortic arch Value Ref 4.00 Arch diam 2.7 cm -------- ML dim, A4C 3.9 cm SI dim, A4C 4.9 cm Decending aorta Value Ref Vol/bsa, ES, A/L 19 ml/m^2 16 - 34 Shy peak wayne 0.65 m/sec -------- Right atrium Value Ref Inferior vena cava Value Ref SI dim, ES 4.1 cm 3.4 - 5.3 Diam 1.7 cm -------- ML dim, ES, A4C 3.7 cm 2.6 - 4.4 Estimated RAP 8 mm Hg Legend: (L) and (H) anastacia values outside specified reference range. Prepared and electronically signed by Real Jenkins MD 12/20/2019 11:32
[2019-12-20] MEDS: Atorvastatin* 40 MG TAB PO SCH (20:34)
[2019-12-21] MEDS: Heparin VIAL(*) 5000 UNITS/ML VIAL (FIVE THOUSAND) SUBCUT SCH (05:58)
[2019-12-21] MEDS: Aspirin 81 mg CHEW TAB* 81 MG TAB.CHEW PO SCH (08:28)
[2019-12-21] MEDS: Cholecalciferol TAB* 1000 UNITS PO SCH (08:28)
[2019-12-21] MEDS ORDERED: Aminophylline IV* 25 MG/ML 10 ML VIAL ONE (10:18)
[2019-12-21] MEDS ORDERED: Regadenoson* 0.4 MG/5 ML SYRINGE ONE (10:18)
[2019-12-21 12:36] VITALS: BP 146/58
--- NOTE | 2019-12-21 17:06 | DS ---
CC: Dr. Silva Martinez* DISCHARGE SUMMARY: DATE OF ADMISSION: 12/19/19 DATE OF DISCHARGE: 12/21/19 PRIMARY CARE PHYSICIAN: Dr. Silva Martinez. PRINCIPAL DISCHARGE DIAGNOSIS: Chest pain. SECONDARY DISCHARGE DIAGNOSES: 1. Obesity. 2. Hyperlipidemia. 3. Osteoarthritis. 4. Peptic ulcer disease. 5. Benign prostatic hypertrophy. 6. Gastroesophageal reflux disease. 7. Low back pain. 8. History of asystole in the setting of hypotension intraoperatively in 2011. MEDICATIONS FOR DISCHARGE: 1. Cholecalciferol 1000 units daily. 2. Celebrex 100 mg b.i.d. 3. Atorvastatin 40 mg daily. 4. Vitamin B12 500 mcg daily. 5. Pantoprazole 20 mg every other day. 6. Glucosamine 1 cap daily. 7. Aspirin 81 mg daily. PHYSICAL EXAMINATION: At the time of discharge, temperature 98 degrees, heart rate 56, respiratory rate 20, pulse ox 99% on room air, blood pressure 146/58. General: Alert, well-appearing man who appears younger than stated age. HEENT: Pupils are equal, round, and reactive to light. Oral mucosa is moist. Neck: No JVP. No adenopathy. Chest: He is in a regular rate and rhythm with no murmurs. His lungs are clear bilaterally. Abdomen: Soft, nontender, nondistended. No guarding or rebound. No CVA tenderness. Extremities: No edema, rashes, or ulcers. Neurologic: Oriented x3. Strength 5/5 in all extremities and gait is normal. PERTINENT STUDIES ON THIS EXAM: A transthoracic echocardiogram on 12/19/19 showed LV, there is focal basal hypertrophy. Systolic function is normal. Estimated EF is 60% to 65%. Doppler parameters are consistent with abnormal LV relaxation and grade 1 diastolic dysfunction. Aortic valve findings are consistent with mild stenosis. Nuclear medicine scan done on 12/21/19 showed no scintigraphic evidence of ischemia or infarction and assessment is low risk. HOSPITAL COURSE BY PROBLEM: Chest pain. Mr. Titus was admitted with chest pain after a motorcycle ride. His troponins were 0.01, 0.02, and 0.01. An EKG was obtained and showed T-wave inversions in lead III and T-wave flattening in V4, V5, and V6. He was monitored on telemetry without any events. His echocardiogram was unremarkable as described above. He had a nuclear stress test on 12/21/19. The nuclear portion was read as low risk. The EKG portion was essentially equivocal per Dr. Cameron's read. I discussed this finding with Cardiology and they felt that given the normal nuclear portion along with negative troponins that no further workup was indicated. Mr. Titus already takes an aspirin and a statin and he is being discharged on the same regimen. He is instructed to follow up with his primary care provider for further workup. His chest pain did not occur throughout the duration of his hospitalization and he is encouraged to come back to the emergency department should his chest pain recur. DISPOSITION: Mr. Titus is being discharged to home on 12/21/19 with primary care followup. CONDITION AT THE TIME OF DISCHARGE: Stable. [id number]/[facility] #: [id number]
== END 2019-12-21 14:45 | disposition home or self-care (01) ==
LOC: ED 17:46 → MEDTELE 20:07
PROVIDERS: ADMIT Internal Medicine; ATTEND Internal Medicine
DX: R07.9 Chest pain, unspecified (principal); E66.9 Obesity, unspecified; E78.5 Hyperlipidemia, unspecified; R06.02 Shortness of breath; M19.90 Unspecified osteoarthritis, unspecified site; K27.9 Peptic ulcer, site unspecified, unspecified as acute or chronic, without hemorrhage or perforation; N40.0 Benign prostatic hyperplasia without lower urinary tract symptoms; K21.9 Gastro-esophageal reflux disease without esophagitis; M54.5 Low back pain; R94.31 Abnormal electrocardiogram [ECG] [EKG]; E78.00 Pure hypercholesterolemia, unspecified; Z86.74 Personal history of sudden cardiac arrest; Z79.82 Long term (current) use of aspirin; Z79.899 Other long term (current) drug therapy; Z96.652 Presence of left artificial knee joint; Z85.46 Personal history of malignant neoplasm of prostate
CPT/HCPCS: 36415; 71045; 78452; 80048; 80053; 80061; 83036; 84484; 85025; 85610; 85730; 93005; 93017; 93306; 96372; 99284; A9270-GY; A9502; C8929; G0378; J0280; J1644; J2785